=== PATIENT | male | born 1980 | race Caucasian/White ===

== ENCOUNTER 2019-12-06 19:17 | Emergency (ER) | payer MEDICAID ==
[~2019-12-06] VITALS: Ht 175.3 cm; Wt 95.3 kg
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
[2019-12-06 19:30] VITALS: BP 123/78
--- NOTE | 2019-12-06 19:49 | NUR ---
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
[2019-12-06] MEDS ORDERED: Tetanus/Diptheria/Pertussis IM ONE (20:00)
--- NOTE | 2019-12-06 20:06 | NUR ---
ED Nurse Note: pt back from imaging with no acute distress. tetanus vaccine administered. cleaned and dressed wound.
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
[2019-12-06] MEDS ORDERED: IBUPROFEN600 M1 ORAL (20:35)
[2019-12-06] MEDS ORDERED: MUPIROCIN22 GM TOPIC (20:35)
[2019-12-06] MEDS ORDERED: ROBAXIN-500MG ORAL (20:35)
[2019-12-06 20:48] VITALS: BP 123/78
--- NOTE | 2019-12-06 20:48 | NUR ---
ER DISCHARGE NOTE: Patient is cleared to be discharged per ERMD, pt is aox4, on room air, with stable vital signs. pt was given dc and prescription instructions, pt was able to verbalize understanding, pt id band removed. pt is able to ambulate with steady gait. pt took all belongings. accompanied by .
== END 2019-12-06 20:49 | disposition home or self-care (01) ==
LOC: EMR 19:41
DX: S60.812A Abrasion of left wrist, initial encounter (principal); S50.312A Abrasion of left elbow, initial encounter; M62.838 Other muscle spasm; V43.52XA Car driver injured in collision with other type car in traffic accident, initial encounter; Y92.410 Unspecified street and highway as the place of occurrence of the external cause; Z23 Encounter for immunization
CPT/HCPCS: 73070; 73100; 90471; 90715; Z7502; 99284